=== PATIENT | female | born 1955 | race Two or more races ===

== ENCOUNTER 2025-05-09 12:10 | Emergency (ER) | payer BC, MEDICAID ==
[~2025-05-09] VITALS: Ht 165.1 cm; Wt 108.9 kg
[2025-05-09] MEDS ORDERED: METOCLOPRAMIDE HCL 10 MG/2 ML VIAL ONE (12:49)
[2025-05-09] MEDS ORDERED: KETOROLAC TROMETHAMINE 15 MG/ML VIAL ONE (12:49)
[2025-05-09 13:00] LABS: PLATELET COUNT (AUTO) 266 K/uL (150-450); RED BLOOD CELL COUNT(AUTO) 4.12 MIL/uL (4.0-5.2); RED CELL DISTRIBUTION WIDTH 14.5 % (11.5-15.0); WHITE BLOOD COUNT (AUTO) 9.1 K/uL (4.3-11.0)
[2025-05-09] MEDS: IV NS 0.9% 1,000 ML BAG IV ONE (13:00)
[2025-05-09] MEDS: KETOROLAC TROMETHAMINE 15 MG/ML VIAL IV ONE (13:02)
[2025-05-09] MEDS: METOCLOPRAMIDE HCL 10 MG/2 ML VIAL IV ONE (13:04)
[2025-05-09 13:09] LABS: CALCIUM, SERUM 8.7 mg/dL (8.5-10.1); CREATININE 0.5 mg/dL (0.6-1.3); SODIUM SERUM 134.0 mmol/L (136-145); UREA NITROGEN, BLOOD 9.0 mg/dL (7-18)
[2025-05-09 13:15] LABS: ASPARTATE AMINOTRANSFERASE 10.0 U/L (15-37); TOTAL PROTEIN, SERUM 6.9 g/dL (6.4-8.2)
[2025-05-09] MEDS ORDERED: PANT40TA49 PO (14:15)
[2025-05-09] MEDS ORDERED: KETO10TA2 PO (14:15)
[2025-05-09] MEDS ORDERED: ONDA4TAB5 PO (14:15)
[2025-05-09 15:03] LABS: APPEARANCE,URINE CLEAR (CLEAR); BLOOD, URINE NEGATIVE Ery/uL (NEGATIVE); LEUKOCYTE ESTERASE ,URINE NEGATIVE (NEGATIVE); NITRITE, URINE NEGATIVE (NEGATIVE); UGLUCOSE 3+ mg/dL (NEGATIVE)
[2025-05-09 15:31] LABS: ADD URINE CULTURE NO
[2025-05-09 15:43] VITALS: BP 132/61; TEMP 98.3; O2SAT 97
== END 2025-05-09 15:44 | disposition home or self-care (01) ==
LOC: ER 12:10
DX: R10.9 Unspecified abdominal pain (principal); I10 Essential (primary) hypertension; E11.9 Type 2 diabetes mellitus without complications; E78.5 Hyperlipidemia, unspecified; Z79.4 Long term (current) use of insulin
CPT/HCPCS: 99285; 74176; 96374; 96361; 96375; 85025; 80048; 83690; 80076; 81001; 36415; J1885; J2765; J7030